=== PATIENT | male | born 1985 | race Asian ===

== ENCOUNTER → 2016-06-08 | Outpatient (CLI) | payer OTHER | LOC: COL.RAD 08:24 | DX: R10.13 Epigastric pain (principal); R11.0 Nausea; R14.2 Eructation | CPT/HCPCS: A9541 ==

== ENCOUNTER → 2016-08-19 | Outpatient (CLI) | payer OTHER | LOC: COL.RAD 09:27 | DX: R14.0 Abdominal distension (gaseous) (principal); R10.84 Generalized abdominal pain; R19.7 Diarrhea, unspecified | CPT/HCPCS: A9537; J2270 ==